=== PATIENT | female | born 1955 | race Caucasian/White ===

== ENCOUNTER → 2019-04-08 | Outpatient (CLI) | payer OTHER ==
--- NOTE | 2019-04-04 08:49 | NUR ---
left msg on voice mail with call back number
[~2019-04-08] VITALS: Ht 162.6 cm; Wt 81.4 kg
[~2019-04-08] MED LIST: ASPIRIN 81M81 MG/TA2 PO; COZAAR100 MG PO; LIPITOR20 MG PO; NORVASC 10MG10 MG PO
[2019-04-08 09:06] VITALS: BP 171/84; PULSE 77
--- NOTE | 2019-04-08 10:47 | NUR ---
procedure cancelled by Dr Cates.
== END ==
LOC: COL.RAD 08:47
DX: R91.8 Other nonspecific abnormal finding of lung field (principal); Z90.710 Acquired absence of both cervix and uterus; Z90.49 Acquired absence of other specified parts of digestive tract